=== PATIENT | female | born 1980 | race African-American/Black ===

== ENCOUNTER 2018-09-02 12:37 | Inpatient (IN) | payer MEDICAID ==
[~2018-09-02] VITALS: Ht 157.5 cm; Wt 121.9 kg
[2018-09-02] MEDS ORDERED: CEFTRIAXONE 250 MG INJ IM ONE (14:30)
[2018-09-02] MEDS ORDERED: LIDOCAINE 1% (MPF) 5 ML VIAL INJ ONE (14:30)
[2018-09-02] MEDS ORDERED: AZITHROMYCIN 500 MG TAB PO ONE (14:30)
--- NOTE | 2018-09-02 16:28 | ERD ---
ER Documentation Chief Complaint Chief Complaint needs std check HPI 38-year-old woman complains of recent weakness and dizziness and states she has been feeling faint. She states for the last few weeks she has had increasing bleeding from painful hemorrhoid especially during bowel movements. She denies weight loss, no fevers or chills, no chest pain or shortness of breath, no vomiting or diarrhea, no complaints of abdominal pain. Patient denies history of anemia or blood transfusions. Patient later stated she wanted empiric treatment for possible sexually transmitted infection because the man she was recently sleeping with had an STI. She has no genitourinary symptoms. ROS All systems reviewed and are negative except as per history of present illness. Allergies Allergies: Coded Allergies: No Known Allergy (Unverified , 09/02/18) PMhx/Soc None Medical and Surgical Hx: pt denies Medical Hx, pt denies Surgical Hx Hx Alcohol Use: No Hx Substance Use: Yes (marijuana) Hx Tobacco Use: No Smoking Status: Never smoker FmHx Family History: No diabetes Physical Exam Vitals Vital Signs Date Temp Pulse Resp B/P (MAP) Pulse Ox O2 O2 Flow FiO2 Time Delivery Rate 09/02/18 97.0 112 20 152/73 100 12:41 (99) Physical Exam GENERAL: Well-developed, well-nourished, weak, appears dehydrated, afebrile HEENT: Dry mucous membranes, pale conjunctiva, no cervical spine tenderness or step-off deformities, no goiter, no jaundice or icterus, extraocular movements intact without pain. No submandibular induration, and no pharyngeal erythema NEURO: Alert and oriented 3, cranial nerves II through XII intact bilaterally, pupils equal round reactive to light, no focal deficits or facial asymmetry, sensation intact distally Strength 5/5 in upper and lower extremities bilaterally CARDIAC: Tachycardic and regular, no murmurs rubs or gallops LUNGS: Clear bilaterally no wheezing crackles or stridor ABDOMEN: Soft nontender, no guarding, no rigidity, no rebound, no psoas sign no obturator sign. SKIN: Warm and dry to touch, no abrasions, contusions, or hematomas, no lacerations, no ecchymosis, no target lesions, and without ulcers Result Diagram: 09/02/18 1426 Results 24 hrs Laboratory Tests Test 09/02/18 14:24 09/02/18 14:26 Bedside Urine pH (LAB) 5.5 Bedside Urine Protein (LAB) 2+ Bedside Urine Glucose (UA) Negative Bedside Urine Ketones (LAB) Trace Bedside Urine Blood 3+ Bedside Urine Nitrite (LAB) Negative Bedside Urine Leukocyte Esterase (L Negative White Blood Count 13.8 10^3/ul Red Blood Count 2.90 10^6/ul Hemoglobin 6.5 g/dl Hematocrit 21.8 % Mean Corpuscular Volume 75.2 fl Mean Corpuscular Hemoglobin 22.4 pg Mean Corpuscular Hemoglobin Concent 29.8 g/dl Red Cell Distribution Width 16.6 % Platelet Count 418 10^3/UL Mean Platelet Volume 9.8 fl Immature Granulocytes % 0.700 % Neutrophils % 64.9 % Segmented Neutrophils % (Manual) 67 % Lymphocytes % 19.3 % Lymphocytes % (Manual) 12 % Reactive Lymphocytes % (Manual) 5 % Monocytes % 6.9 % Monocytes % (Manual) 4 % Eosinophils % 7.7 % Eosinophils % (Manual) 10 % Basophils % 0.5 % Basophils % (Manual) 1 % Nucleated Red Blood Cells % 0.2 /100WBC Immature Granulocytes # 0.090 10^3/ul Neutrophils # 9.0 10^3/ul Lymphocytes (Manual) 1.6 10^3/ul Lymphocytes # 2.7 10^3/ul Reactive Lymphocytes # 0.6 10^3/ul Monocytes # 1.0 10^3/ul Monocytes # (Manual) 0.5 10^3/ul Eosinophils # 1.1 10^3/ul Basophils # 0.1 10^3/ul Basophils # (Manual) 0.1 10^3/ul Nucleated Red Blood Cells # 0.0 10^3/ul Pathologist Review (Hematology) YES Polychromasia 1+ Hypochromasia 3+ Anisocytosis 2+ Microcytosis 2+ Ovalocytes 1+ POC Beta HCG, Qualitative NEGATIVE Current Medications Medications Dose Sig/Damian Start Time Status Last (Trade) Ordered Route PRN Stop Time Admin Dose Reason Admin 1,000 mg ONCE ONCE 09/02/18 DC 09/02/18 Azithromycin PO 14:30 14:27 (Zithromax) 09/02/18 14:31 Ceftriaxone 250 mg ONCE ONCE 09/02/18 DC 09/02/18 Sodium IM 14:30 14:27 (Rocephin) 09/02/18 14:31 Lidocaine 5 ml ONCE ONCE 09/02/18 DC 09/02/18 (Xylocaine INJ 14:30 14:27 1% (Mpf)) 09/02/18 14:31 Procedures/MDM IV line was established patient was placed on case monitor rhythm strip revealed a sinus tachycardia at 120 bpm with upright P and T waves. Patient was afebrile Patient was initially treated with ceftriaxone and azithromycin empirically for STI. CBC reveals severe anemia with a hemoglobin of 6.5. test was negative, electrolytes liver function tests urine analysis pending I will follow-up. I ordered transfusion 1 unit PRBC IV over 2 hours. Rectal exam deferred to admitting team This is a young otherwise healthy woman presenting with symptomatic anemia and what seems to be bleeding hemorrhoids. She will be admitted to [facility] for continued medical management and possible consultation. Departure Diagnosis: Primary Impression: Bleeding hemorrhoid Additional Impression: Symptomatic anemia Condition: JOSÉ Forte MD Sep 02, 2018 16:20
[2018-09-02] MEDS ORDERED: ONDANSETRON 4 MG INJ IV PRN (19:00)
[2018-09-02] MEDS ORDERED: NACL 0.9% 3 ML SYG IV SCH (19:00)
[2018-09-02] MEDS ORDERED: morphine 2 MG INJ IV PRN (19:00)
[2018-09-02] MEDS ORDERED: ZOLPIDEM 5 MG TAB PO PRN (19:00)
--- NOTE | 2018-09-02 19:41 | HP ---
Date/Time of Note Date/Time of Note DATE: 09/02/18 TIME: 19:37 Assessment/Plan VTE Prophylaxis SCD applied (from Nsg): Yes Pharmacological prophylaxis: NA/contraindicated Pharm contraindication: bleeding Lines/Catheters IV Catheter Type (from Nrsg): Saline Lock Assessment/Plan Hospital Course 1. Symptomatic microcytic anemia secondary to GI bleed Patient reports a history of hemorrhoids GI consultation obtained Blood transfusion Check iron and replete 2. Leukocytosis likely reactive UA is negative and patient has no upper respiratory infection symptoms Monitor Prophylaxis: SCDs Result Diagram: 09/02/18 1426 09/02/18 1701 Results 24hrs Laboratory Tests Test 09/02/18 14:24 09/02/18 14:26 09/02/18 17:01 Bedside Urine pH (LAB) 5.5 Bedside Urine Protein (LAB) 2+ H Bedside Urine Glucose (UA) Negative Bedside Urine Ketones (LAB) Trace H Bedside Urine Blood 3+ H Bedside Urine Nitrite (LAB) Negative Bedside Urine Leukocyte Esterase (L Negative White Blood Count 13.8 H Red Blood Count 2.90 L Hemoglobin 6.5 *L Hematocrit 21.8 L Mean Corpuscular Volume 75.2 L Mean Corpuscular Hemoglobin 22.4 L Mean Corpuscular Hemoglobin Concent 29.8 L Red Cell Distribution Width 16.6 H Platelet Count 418 H Mean Platelet Volume 9.8 Immature Granulocytes % 0.700 H Neutrophils % 64.9 Segmented Neutrophils % (Manual) 67 Lymphocytes % 19.3 Lymphocytes % (Manual) 12 L Reactive Lymphocytes % (Manual) 5 H Monocytes % 6.9 Monocytes % (Manual) 4 Eosinophils % 7.7 H Eosinophils % (Manual) 10 H Basophils % 0.5 Basophils % (Manual) 1 Nucleated Red Blood Cells % 0.2 H Immature Granulocytes # 0.090 H Neutrophils # 9.0 H Lymphocytes (Manual) 1.6 Lymphocytes # 2.7 Reactive Lymphocytes # 0.6 H Monocytes # 1.0 H Monocytes # (Manual) 0.5 Eosinophils # 1.1 H Basophils # 0.1 Basophils # (Manual) 0.1 H Nucleated Red Blood Cells # 0.0 Pathologist Review (Hematology) YES Polychromasia 1+ Hypochromasia 3+ Anisocytosis 2+ Microcytosis 2+ Ovalocytes 1+ POC Beta HCG, Qualitative NEGATIVE Prothrombin Time 12.8 Prothrombin Time Ratio 1.0 INR International Normalized Ratio 0.95 Activated Partial Thromboplast Time 22.4 L Sodium Level 140 Potassium Level 3.7 Chloride Level 108 Carbon Dioxide Level 21 Anion Gap 11 Blood Urea Nitrogen 7 Creatinine 0.66 Est Glomerular Filtrat Rate mL/min > 60 Glucose Level 100 Calcium Level 9.3 Total Bilirubin 0.4 Direct Bilirubin 0.00 Indirect Bilirubin 0.4 Aspartate Amino Transf (AST/SGOT) 18 Alanine Aminotransferase (ALT/SGPT) 14 Alkaline Phosphatase 85 Total Protein 7.5 Albumin 4.3 Globulin 3.20 Albumin/Globulin Ratio 1.34 Lipase 27 HPI/ROS Admit Date/Time Admit Date/Time September 02, 2018 Hx of Present Illness Patient is a 38-year-old female with a history of lower GI bleed believed to be secondary to hemorrhoids with chronic bright red blood per rectum for the past 2 years. Patient was hospitalized in the past for GI bleed, patient states that she was given an iron pill and no endoscopy was performed. Patient denies any vaginal bleeding and denies any other medical history. Patient presents to the ER for worsening dizziness and fatigue and was found to be severely anemic. Of note patient states that she is chronically fatigued over the past 2 years but felt worse over the past several days. ROS Constitutional: no complaints, improved Eyes: no complaints ENT: no complaints Respiratory: no complaints Cardiovascular: no complaints Gastrointestinal: no complaints Genitourinary: no complaints Musculoskeletal: no complaints Skin: no complaints Neurologic: no complaints Endocrine: no complaints Lymphatic: no complaints Psychological: no complaints, nl mood/affect Immunologic: no complaints PMH/Family/Social Past Medical History Chronic GI bleed Medications Current Medications Potassium Chloride/Sodium Chloride 1,000 ml @ 100 mls/hr Q10H IV ; Start 09/02/18 at 18:57 IV Flush (NS 3 ml) 3 ml PER PROTOCOL IV ; Start 09/02/18 at 19:00 Ondansetron HCl (Zofran Inj) 4 mg Q6H PRN IV NAUSEA/VOMITING; Start 09/02/18 at 19:00 Acetaminophen (Tylenol Tab) 650 mg Q6H PRN PO .PAIN 1-3 OR TEMP; Start 09/02/18 at 19:00 Acetaminophen/ Hydrocodone Bitart ([place] (5/325)) 1 tab Q6H PRN PO .MOD PAIN 4- 6; Start 09/02/18 at 19:00 Morphine Sulfate (morphine) 2 mg Q4H PRN IV .SEVERE PAIN 7-10; Start 09/02/18 at 19:00 Zolpidem Tartrate (Ambien) 5 mg QHS PRN PO .INSOMNIA; Start 09/02/18 at 19:00 Pantoprazole (Protonix Iv) 40 mg DAILY@06 IV ; Start 09/03/18 at 06:00 Ferric Sodium Gluconate Complex 125 mg/Sodium Chloride 100 ml @ 100 mls/hr DAILY@1300 IVPB ; Start 09/03/18 at 13:00; Stop 09/05/18 at 13:59 Coded Allergies: No Known Allergy (Unverified , 09/02/18) Past Surgical History Past Surgical Hx: no surgical history Family History Significant Family History: no pertinent family hx Social History Alcohol Use: rarely Smoking Status: Never smoker Drug Use: none Exam/Review of Systems Vital Signs Vitals Vital Signs Date Temp Pulse Resp B/P (MAP) Pulse Ox O2 O2 Flow FiO2 Time Delivery Rate 09/02/18 98.4 88 16 118/50 100 Room Air 19:30 (72) Exam Constitutional: alert, oriented Respiratory: clear to auscultation Cardiovascular: regular rate and rhythm Gastrointestinal: soft; No distended Musculoskeletal: nl extremities to inspection KEAGAN MARTINEZ Sep 02, 2018 19:41
[2018-09-02 20:37] VITALS: BP 145/70; PULSE 95; RESP 18
[2018-09-02] MEDS: ACETAMINOPHEN 325 MG TAB PO PRN (21:05)
[2018-09-02 21:12] VITALS: Ht 157.5 cm; Wt 121.9 kg
[2018-09-03 02:00] VITALS: BP 123/72; PULSE 75; RESP 18
[2018-09-03] MEDS: NS + KCL 20 MEQ 1,000 ML IV SCH ×5 (02:30→23:52)
[2018-09-03] MEDS: PANTOPRAZOLE 40 MG INJ IV SCH (05:51)
[2018-09-03 07:40] VITALS: BP 116/64; PULSE 78; RESP 18
--- NOTE | 2018-09-03 11:43 | CONS ---
Assessment/Plan Assessment/Plan Hospital Course (Demo Recall) Summary Assessment and Plan: Assessment: Hematochezia Lower abdominal tenderness Iron deficiency anemia Obesity Plan: Clear liquid diet today N.p.o. after 09/04/18 at 0 800 EGD/colonoscopy 09/04/18 Endoscopy - risks/benefits/alternatives/indications of procedure and sedation/anesthesia discussed with patient who states understanding and gives informed consent to proceed. Patient seen in collaboration with Dr. Johnston CC: KERRY JOHNSTON ; Consultation Date/Type/Reason Admit Date/Time September 02, 2018 Date of Consultation: Sep 03, 2018 Type of Consult GI Reason for Consultation Hematochezia Date/Time of Note DATE: 09/03/18 TIME: 11:27 Hx of Present Illness This is a 38 year old female with no significant PMH who presented to the ED with c/o generalized weakness, and dizziness. Upon work-up pt found to have severe microcytic anemia. She states she has had rectal bleeding for some time, described as maroon in color. She has never had a colonoscopy or EGD and she denies family history of colon cancer, unintentional weight loss, or change in bowel habits. Given clinical picture discussed plan for EGD and colonoscopy tomorrow. I reviewed risk/benefits of both procedure and sedation patient verbalized understanding and is agreeable to proceed with procedures tomorrow. Review of Systems: A 12 system, review was conducted and is negative except as noted in the HPI or here. Past Medical History Home Meds No Active Prescriptions or Reported Meds Medications Current Medications Potassium Chloride/Sodium Chloride 1,000 ml @ 100 mls/hr Q10H IV Last administered on 09/03/18at 02:30; Admin Dose 100 MLS/HR; Start 09/02/18 at 18:57 IV Flush (NS 3 ml) 3 ml PER PROTOCOL IV ; Start 09/02/18 at 19:00 Ondansetron HCl (Zofran Inj) 4 mg Q6H PRN IV NAUSEA/VOMITING; Start 09/02/18 at 19:00 Acetaminophen (Tylenol Tab) 650 mg Q6H PRN PO .PAIN 1-3 OR TEMP Last administered on 09/02/18at 21:05; Admin Dose 650 MG; Start 09/02/18 at 19:00 Acetaminophen/ Hydrocodone Bitart ([place] (5/325)) 1 tab Q6H PRN PO .MOD PAIN 4- 6; Start 09/02/18 at 19:00 Morphine Sulfate (morphine) 2 mg Q4H PRN IV .SEVERE PAIN 7-10; Start 09/02/18 at 19:00 Zolpidem Tartrate (Ambien) 5 mg QHS PRN PO .INSOMNIA; Start 09/02/18 at 19:00 Pantoprazole (Protonix Iv) 40 mg DAILY@06 IV Last administered on 09/03/18at 05:51; Admin Dose 40 MG; Start 09/03/18 at 06:00 Ferric Sodium Gluconate Complex 125 mg/Sodium Chloride 100 ml @ 100 mls/hr DAILY@1300 IVPB ; Start 09/03/18 at 13:00; Stop 09/05/18 at 13:59 Allergies: Coded Allergies: No Known Allergy (Unverified , 09/02/18) Past Surgical History Past Surgical Hx: no surgical history Social History Alcohol Use: rarely Smoking Status: Current some day smoker Drug Use: none Exam/Review of Systems Exam Vitals Vital Signs Date Temp Pulse Resp B/P (MAP) Pulse Ox O2 O2 Flow FiO2 Time Delivery Rate 09/03/18 98.5 78 18 116/64 99 Room Air 07:40 (81) Intake and Output 09/02/18 09/02/18 09/03/18 1515:00 23:00 07:00 IntakeIntake Total 1150 ml 650 ml BalanceBalance 1150 ml 650 ml Exam PHYSICAL EXAMINATION: GENERAL: Obese, alert & oriented x 3, in no acute distress SKIN: No lesions EYES: Pupils equal reactive to light, no discharge. EARS/NOSE AND THROAT: Ears normal, nose normal NECK: Supple, no masses CHEST: Inspection within normal limits. CARDIOVASCULAR: Heart: Regular rate and rhythm. RESPIRATORY: Lungs clear to auscultation GASTROINTESTINAL AND LIVER: Abdomen: Soft, lower abd tenderness, non-distended, no hernias, no masses, no organomegaly, no ascites, no guarding, no rebound tenderness, normoactive bowel sounds. Rectal: Deferred. EXTREMITIES: No cyanosis, clubbing or edema. Results Result Diagram: 09/03/18 0550 09/03/18 0550 Results 24hrs Laboratory Tests Test 09/02/18 14:24 09/02/18 14:26 09/02/18 17:01 09/03/18 05:50 Bedside Urine pH 5.5 (LAB) Bedside Urine 2+ H Protein (LAB) Bedside Urine Negative Glucose (UA) Bedside Urine Trace H Ketones (LAB) Bedside Urine Blood 3+ H Bedside Urine Negative Nitrite (LAB) Bedside Urine Negative Leukocyte Esterase (L White Blood Count 13.8 H 11.2 H Red Blood Count 2.90 L 3.27 L Hemoglobin 6.5 *L 8.1 #L Hematocrit 21.8 L 25.7 L Mean Corpuscular 75.2 L 78.6 L Volume Mean Corpuscular 22.4 L 24.8 L Hemoglobin Mean Corpuscular 29.8 L 31.5 L Hemoglobin Concent Red Cell 16.6 H 18.3 H Distribution Width Platelet Count 418 H 357 Mean Platelet Volume 9.8 10.5 H Immature 0.700 H 0.500 H Granulocytes % Neutrophils % 64.9 63.0 Segmented 67 Neutrophils % (Manual) Lymphocytes % 19.3 19.3 Lymphocytes % 12 L (Manual) Reactive Lymphocytes 5 H % (Manual) Monocytes % 6.9 7.2 Monocytes % (Manual) 4 Eosinophils % 7.7 H 9.5 H Eosinophils % 10 H (Manual) Basophils % 0.5 0.5 Basophils % (Manual) 1 Nucleated Red Blood 0.2 H 0.0 Cells % Immature 0.090 H 0.060 H Granulocytes # Neutrophils # 9.0 H 7.1 Lymphocytes (Manual) 1.6 Lymphocytes # 2.7 2.2 Reactive Lymphocytes 0.6 H # Monocytes # 1.0 H 0.8 Monocytes # (Manual) 0.5 Eosinophils # 1.1 H 1.1 H Basophils # 0.1 0.1 Basophils # (Manual) 0.1 H Nucleated Red Blood 0.0 0.0 Cells # Pathologist YES Review (Hematology) Polychromasia 1+ Hypochromasia 3+ Anisocytosis 2+ Microcytosis 2+ Ovalocytes 1+ POC Beta HCG, NEGATIVE Qualitative Prothrombin Time 12.8 Prothrombin Time 1.0 Ratio INR International 0.95 Normalized Ratio Activated 22.4 L Partial Thromboplast Time Sodium Level 140 140 Potassium Level 3.7 3.9 Chloride Level 108 106 Carbon Dioxide Level 21 22 Anion Gap 11 12 Blood Urea Nitrogen 7 5 L Creatinine 0.66 0.64 Est Glomerular > 60 > 60 Filtrat Rate mL/min Glucose Level 100 97 Calcium Level 9.3 8.7 Total Bilirubin 0.4 Direct Bilirubin 0.00 Indirect Bilirubin 0.4 Aspartate Amino 18 Transf (AST/SGOT) Alanine 14 Aminotransferase (AL T/SGPT) Alkaline Phosphatase 85 Total Protein 7.5 Albumin 4.3 Globulin 3.20 Albumin/Globulin 1.34 Ratio Lipase 27 Hemoglobin A1c 5.5 Phosphorus Level 3.9 Magnesium Level 2.1 Iron Level 32 L Total Iron Binding 444 H Capacity Percent Iron 7 L Saturation Triglycerides Level 120 Cholesterol Level 150 LDL Cholesterol, 86 Calculated HDL Cholesterol 40 Cholesterol/HDL 3.7 Ratio Medications Medication Current Medications Potassium Chloride/Sodium Chloride 1,000 ml @ 100 mls/hr Q10H IV Last adm inistered on 09/03/18at 02:30; Admin Dose 100 MLS/HR; Start 09/02/18 at 18:57 IV Flush (NS 3 ml) 3 ml PER PROTOCOL IV ; Start 09/02/18 at 19:00 Ondansetron HCl (Zofran Inj) 4 mg Q6H PRN IV NAUSEA/VOMITING; Start 09/02/18 at 19:00 Acetaminophen (Tylenol Tab) 650 mg Q6H PRN PO .PAIN 1-3 OR TEMP Last administered on 09/02/18at 21:05; Admin Dose 650 MG; Start 09/02/18 at 19:00 Acetaminophen/ Hydrocodone Bitart ([place] (5/325)) 1 tab Q6H PRN PO .MOD PAIN 4- 6; Start 09/02/18 at 19:00 Morphine Sulfate (morphine) 2 mg Q4H PRN IV .SEVERE PAIN 7-10; Start 09/02/18 at 19:00 Zolpidem Tartrate (Ambien) 5 mg QHS PRN PO .INSOMNIA; Start 09/02/18 at 19:00 Pantoprazole (Protonix Iv) 40 mg DAILY@06 IV Last administered on 09/03/18at 05:51; Admin Dose 40 MG; Start 09/03/18 at 06:00 Ferric Sodium Gluconate Complex 125 mg/Sodium Chloride 100 ml @ 100 mls/hr DAILY@1300 IVPB ; Start 09/03/18 at 13:00; Stop 09/05/18 at 13:59 ELDA HOOD Sep 03, 2018 11:37
[2018-09-03] MEDS ORDERED: BISACODYL (EC) 5 MG TAB PO ONE (12:00)
[2018-09-03 14:05] VITALS: BP 148/83; PULSE 78; RESP 18
[2018-09-03] MEDS: SOD FERRIC GLUC COMPLX 125 MG in SOD CHLORIDE 0.9% 100 ML IVPB SCH (14:30)
--- NOTE | 2018-09-03 14:34 | PN ---
Date/Time of Note Date/Time of Note DATE: 09/03/18 TIME: 14:33 Assessment/Plan VTE Prophylaxis Risk score (from [facility])>0 risk: 1 SCD applied (from [facility]): Yes Pharmacological prophylaxis: NA/contraindicated Pharm contraindication: bleeding Lines/Catheters IV Catheter Type (from [facility]): Peripheral IV Urinary Cath still in place: No Assessment/Plan Hospital Course 1. Symptomatic microcytic anemia secondary to GI bleed Patient reports a history of hemorrhoids GI consultation obtained, plan for EGD and colonoscopy tomorrow Status post blood transfusion Iron panel consistent with deficiency, continue Ferrlecit 2. Leukocytosis likely reactive-trending down UA is negative and patient has no upper respiratory infection symptoms Monitor Prophylaxis: SCDs Result Diagram: 09/03/18 0550 09/03/18 0550 Results 24hrs Laboratory Tests Test 09/02/18 17:01 09/03/18 05:50 Prothrombin Time 12.8 Prothrombin Time Ratio 1.0 INR International Normalized Ratio 0.95 Activated Partial Thromboplast Time 22.4 L Sodium Level 140 140 Potassium Level 3.7 3.9 Chloride Level 108 106 Carbon Dioxide Level 21 22 Anion Gap 11 12 Blood Urea Nitrogen 7 5 L Creatinine 0.66 0.64 Est Glomerular Filtrat Rate mL/min > 60 > 60 Glucose Level 100 97 Calcium Level 9.3 8.7 Total Bilirubin 0.4 Direct Bilirubin 0.00 Indirect Bilirubin 0.4 Aspartate Amino Transf (AST/SGOT) 18 Alanine Aminotransferase (ALT/SGPT) 14 Alkaline Phosphatase 85 Total Protein 7.5 Albumin 4.3 Globulin 3.20 Albumin/Globulin Ratio 1.34 Lipase 27 White Blood Count 11.2 H Red Blood Count 3.27 L Hemoglobin 8.1 #L Hematocrit 25.7 L Mean Corpuscular Volume 78.6 L Mean Corpuscular Hemoglobin 24.8 L Mean Corpuscular Hemoglobin Concent 31.5 L Red Cell Distribution Width 18.3 H Platelet Count 357 Mean Platelet Volume 10.5 H Immature Granulocytes % 0.500 H Neutrophils % 63.0 Lymphocytes % 19.3 Monocytes % 7.2 Eosinophils % 9.5 H Basophils % 0.5 Nucleated Red Blood Cells % 0.0 Immature Granulocytes # 0.060 H Neutrophils # 7.1 Lymphocytes # 2.2 Monocytes # 0.8 Eosinophils # 1.1 H Basophils # 0.1 Nucleated Red Blood Cells # 0.0 Hemoglobin A1c 5.5 Phosphorus Level 3.9 Magnesium Level 2.1 Iron Level 32 L Total Iron Binding Capacity 444 H Percent Iron Saturation 7 L Triglycerides Level 120 Cholesterol Level 150 LDL Cholesterol, Calculated 86 HDL Cholesterol 40 Cholesterol/HDL Ratio 3.7 Subjective 24 Hr Interval Summary Constitutional: no complaints Exam/Review of Systems Exam Vitals Vital Signs Date Temp Pulse Resp B/P (MAP) Pulse Ox O2 O2 Flow FiO2 Time Delivery Rate 09/03/18 98.5 78 18 116/64 99 Room Air 07:40 (81) Intake and Output 09/02/18 09/02/18 09/03/18 1515:00 23:00 07:00 IntakeIntake Total 1150 ml 650 ml BalanceBalance 1150 ml 650 ml Constitutional: alert, oriented Respiratory: clear to auscultation Cardiovascular: regular rate and rhythm Gastrointestinal: soft Musculoskeletal: nl extremities to inspection Results Results 24hrs Laboratory Tests Test 09/02/18 17:01 09/03/18 05:50 Prothrombin Time 12.8 Prothrombin Time Ratio 1.0 INR International Normalized Ratio 0.95 Activated Partial Thromboplast Time 22.4 L Sodium Level 140 140 Potassium Level 3.7 3.9 Chloride Level 108 106 Carbon Dioxide Level 21 22 Anion Gap 11 12 Blood Urea Nitrogen 7 5 L Creatinine 0.66 0.64 Est Glomerular Filtrat Rate mL/min > 60 > 60 Glucose Level 100 97 Calcium Level 9.3 8.7 Total Bilirubin 0.4 Direct Bilirubin 0.00 Indirect Bilirubin 0.4 Aspartate Amino Transf (AST/SGOT) 18 Alanine Aminotransferase (ALT/SGPT) 14 Alkaline Phosphatase 85 Total Protein 7.5 Albumin 4.3 Globulin 3.20 Albumin/Globulin Ratio 1.34 Lipase 27 White Blood Count 11.2 H Red Blood Count 3.27 L Hemoglobin 8.1 #L Hematocrit 25.7 L Mean Corpuscular Volume 78.6 L Mean Corpuscular Hemoglobin 24.8 L Mean Corpuscular Hemoglobin Concent 31.5 L Red Cell Distribution Width 18.3 H Platelet Count 357 Mean Platelet Volume 10.5 H Immature Granulocytes % 0.500 H Neutrophils % 63.0 Lymphocytes % 19.3 Monocytes % 7.2 Eosinophils % 9.5 H Basophils % 0.5 Nucleated Red Blood Cells % 0.0 Immature Granulocytes # 0.060 H Neutrophils # 7.1 Lymphocytes # 2.2 Monocytes # 0.8 Eosinophils # 1.1 H Basophils # 0.1 Nucleated Red Blood Cells # 0.0 Hemoglobin A1c 5.5 Phosphorus Level 3.9 Magnesium Level 2.1 Iron Level 32 L Total Iron Binding Capacity 444 H Percent Iron Saturation 7 L Triglycerides Level 120 Cholesterol Level 150 LDL Cholesterol, Calculated 86 HDL Cholesterol 40 Cholesterol/HDL Ratio 3.7 Medications Medication Current Medications Potassium Chloride/Sodium Chloride 1,000 ml @ 100 mls/hr Q10H IV Last adminis tered on 09/03/18at 02:30; Admin Dose 100 MLS/HR; Start 09/02/18 at 18:57 IV Flush (NS 3 ml) 3 ml PER PROTOCOL IV ; Start 09/02/18 at 19:00 Ondansetron HCl (Zofran Inj) 4 mg Q6H PRN IV NAUSEA/VOMITING; Start 09/02/18 at 19:00 Acetaminophen (Tylenol Tab) 650 mg Q6H PRN PO .PAIN 1-3 OR TEMP Last admi nistered on 09/02/18at 21:05; Admin Dose 650 MG; Start 09/02/18 at 19:00 Acetaminophen/ Hydrocodone Bitart ([place] (5/325)) 1 tab Q6H PRN PO .MOD PAIN 4- 6; Start 09/02/18 at 19:00 Morphine Sulfate (morphine) 2 mg Q4H PRN IV .SEVERE PAIN 7-10; Start 09/02/18 at 19:00 Zolpidem Tartrate (Ambien) 5 mg QHS PRN PO .INSOMNIA; Start 09/02/18 at 19:00 Pantoprazole (Protonix Iv) 40 mg DAILY@06 IV Last administered on 09/03/18at 05:51; Admin Dose 40 MG; Start 09/03/18 at 06:00 Ferric Sodium Gluconate Complex 125 mg/Sodium Chloride 100 ml @ 100 mls/hr DAILY@1300 IVPB Last administered on 09/03/18at 14:30; Admin Dose 100 MLS/HR; Start 09/03/18 at 13:00; Stop 09/05/18 at 13:59 Magnesium Citrate (Citroma) 300 ml ONCE ONCE PO ; Start 09/03/18 at 17:30; Stop 09/03/18 at 17:31 Polyethylene Glycol (Miralax) 119 gm ONCE ONCE PO ; Start 3/28/19 at 18:30; Stop 09/03/18 at 18:31 Polyethylene Glycol (Miralax) 119 gm 2ND DOSE (GI PREP) ONCE PO ; Start 09/04/18 at 06:00; Stop 09/04/18 at 06:01 Bisacodyl (Dulcolax) 10 mg 2ND DOSE (GI PREP) ONCE PO ; Start 09/04/18 at 08:00; Stop 09/04/18 at 08:01 KEAGAN MARTINEZ Sep 03, 2018 14:34
--- NOTE | 2018-09-03 17:10 | PREAC ---
Date/Time of Note Date/Time of Note DATE: 09/03/18 TIME: 17:09 Anesthesia Eval and Record Evaluation Time Pre-Procedure Interview DATE: 09/03/18 TIME: 17:09 Age 38 Sex female NPO: 8 hrs Preoperative diagnosis rectal bleeding Planned procedure EGD / Colonoscopy Past Medical History Past Medical History: Includes GI: Morbid obesity Heme: Anemia Surgery & Anesthesia Issues No known issue Meds Anticoagulation: No Beta Gabriela within 24 hr: No Reason Beta Gabriela not given: Pt. not on B-Gabriela No Active Prescriptions or Reported Meds Current Medications Potassium Chloride/Sodium Chloride 1,000 ml @ 100 mls/hr Q10H IV Last administered on 09/03/18at 17:02; Admin Dose 100 MLS/HR; Start 09/02/18 at 18:57 IV Flush (NS 3 ml) 3 ml PER PROTOCOL IV ; Start 09/02/18 at 19:00 Ondansetron HCl (Zofran Inj) 4 mg Q6H PRN IV NAUSEA/VOMITING; Start 09/02/18 at 19:00 Acetaminophen (Tylenol Tab) 650 mg Q6H PRN PO .PAIN 1-3 OR TEMP Last administered on 09/02/18at 21:05; Admin Dose 650 MG; Start 09/02/18 at 19:00 Acetaminophen/ Hydrocodone Bitart ([place] (5/325)) 1 tab Q6H PRN PO .MOD PAIN 4- 6; Start 09/02/18 at 19:00 Morphine Sulfate (morphine) 2 mg Q4H PRN IV .SEVERE PAIN 7-10; Start 09/02/18 at 19:00 Zolpidem Tartrate (Ambien) 5 mg QHS PRN PO .INSOMNIA; Start 09/02/18 at 19:00 Pantoprazole (Protonix Iv) 40 mg DAILY@06 IV Last administered on 09/03/18at 05:51; Admin Dose 40 MG; Start 09/03/18 at 06:00 Ferric Sodium Gluconate Complex 125 mg/Sodium Chloride 100 ml @ 100 mls/hr DAILY@1300 IVPB Last administered on 09/03/18at 14:30; Admin Dose 100 MLS/HR; Start 09/03/18 at 13:00; Stop 09/05/18 at 13:59 Magnesium Citrate (Citroma) 300 ml ONCE ONCE PO Last administered on 09/03/18at 17:02; Admin Dose 300 ML; Start 09/03/18 at 17:30; Stop 09/03/18 at 17:31 Polyethylene Glycol (Miralax) 119 gm ONCE ONCE PO ; Start 09/03/18 at 18:30; Stop 09/03/18 at 18:31 Polyethylene Glycol (Miralax) 119 gm 2ND DOSE (GI PREP) ONCE PO ; Start 09/04/18 at 06:00; Stop 09/04/18 at 06:01 Bisacodyl (Dulcolax) 10 mg 2ND DOSE (GI PREP) ONCE PO ; Start 09/04/18 at 08:00; Stop 09/04/18 at 08:01 Meds reviewed: Yes Allergies Coded Allergies: No Known Allergy (Unverified , 09/02/18) Allergies Reviewed: Yes Labs/Studies Labs Reviewed: Reviewed by anesthesiologist Result Diagram: 09/03/18 0550 09/03/18 0550 Laboratory Tests 09/03/18 05:50 test: Negative Pre-procedure Exam Last vitals Vital Signs Date Temp Pulse Resp B/P (MAP) Pulse Ox O2 O2 Flow FiO2 Time Delivery Rate 09/03/18 98.3 78 18 148/83 99 Room Air 14:05 (104) Airway: Adequate mouth opening Mallampati: Mallampati II Teeth: Normal Lung: Normal Heart: Normal ASA Physical Status ASA physical status: 3 Emergency: None Planned Anesthetic General/MAC: MAC Pre-operative Attestations Prior to commencing anesthesia and surgery, the patient was re-evaluated, there was verification of: *The patient's identity *The results of appropriate recent lab work and preoperative vital signs *The above evaluation not changing prior to induction *Anesthetic plan, risk benefits, alternative and complications discussed with patient/family; questions answered; patient/family understands, accepts and wishes to proceed. HOSSEIN MCCORMICK Sep 03, 2018 17:10
[2018-09-03] MEDS ORDERED: MAGNESIUM CITRATE 300 ML BTL PO ONE (17:30)
[2018-09-03] MEDS ORDERED: POLYETHYLENE GLYCOL 3350 119 GM POWDER PO ONE (18:30)
[2018-09-03] MEDS: ACETAMINOPHEN 325 MG TAB PO PRN (19:06)
[2018-09-03 20:12] VITALS: BP 141/75; PULSE 89; RESP 18
[2018-09-04] VITALS (8 sets, daily range): BP systolic 98–146; BP diastolic 54–88; PULSE 72–88; RESP 17–28
[2018-09-04] MEDS: NS + KCL 20 MEQ 1,000 ML IV SCH ×3 (00:57→21:28)
[2018-09-04] MEDS ORDERED: POLYETHYLENE GLYCOL 3350 119 GM POWDER PO ONE (06:00)
[2018-09-04] MEDS: PANTOPRAZOLE 40 MG INJ IV SCH (06:18)
[2018-09-04] MEDS ORDERED: BISACODYL (EC) 5 MG TAB PO ONE (08:00)
--- NOTE | 2018-09-04 11:47 | PN ---
Date/Time of Note Date/Time of Note DATE: 09/04/18 TIME: 11:46 Assessment/Plan VTE Prophylaxis [place] [facility] [place]: 1 [place]CD [place] [facility] [place] Yes Pharmacological prophylaxis: NA/contraindicated Pharm contraindication: bleeding Lines/Catheters IV C[facility]ter Type [facility]from [facility] Peripheral IV Urinary Cath still in place: No Assessment/Plan Hospital Course 1. Symptomatic microcytic anemia secondary to GI bleed Patient reports a history of hemorrhoids GI consultation obtained, plan for EGD and colonoscopy today Status post blood transfusion Iron panel consistent with deficiency, continue Ferrlecit 2. Leukocytosis likely reactive-trending down UA is negative and patient has no upper respiratory infection symptoms Monitor STD panel is negative Prophylaxis: SCDs Result Diagram: 09/04/18 0445 09/03/18 0550 Results 24hrs Laboratory Tests Test 09/04/18 04:45 09/04/18 06:13 White Blood Count 12.2 H Red Blood Count 3.23 L Hemoglobin 8.0 L Hematocrit 25.3 L Mean Corpuscular Volume 78.3 L Mean Corpuscular Hemoglobin 24.8 L Mean Corpuscular Hemoglobin Concent 31.6 L Red Cell Distribution Width 18.5 H Platelet Count 353 Mean Platelet Volume 10.7 H Immature Granulocytes % 0.300 Neutrophils % 59.1 Lymphocytes % 21.2 Monocytes % 8.5 Eosinophils % 10.4 H Basophils % 0.5 Nucleated Red Blood Cells % 0.0 Immature Granulocytes # 0.040 H Neutrophils # 7.2 Lymphocytes # 2.6 Monocytes # 1.0 H Eosinophils # 1.3 H Basophils # 0.1 Nucleated Red Blood Cells # 0.0 Lab Scanned Report BLOOD TRANSFUSION Subjective 24 Hr Interval Summary Constitutional: no complaints Exam/Review of Systems Exam Vitals Vital Signs Date Temp Pulse Resp B/P (MAP) Pulse Ox O2 O2 Flow FiO2 Time Delivery Rate 09/04/18 98.4 83 18 127/73 96 07:55 (91) 09/03/18 Room Air 14:05 Intake and Output 09/03/18 09/03/18 09/04/18 1515:00 23:00 07:00 IntakeIntake Total 720 ml 1400 ml 750 ml BalanceBalance 720 ml 1400 ml 750 ml Constitutional: alert, oriented Respiratory: clear to auscultation Cardiovascular: regular rate and rhythm Gastrointestinal: soft; No distended Musculoskeletal: nl extremities to inspection Results Results 24hrs Laboratory Tests Test 09/04/18 04:45 09/04/18 06:13 White Blood Count 12.2 H Red Blood Count 3.23 L Hemoglobin 8.0 L Hematocrit 25.3 L Mean Corpuscular Volume 78.3 L Mean Corpuscular Hemoglobin 24.8 L Mean Corpuscular Hemoglobin Concent 31.6 L Red Cell Distribution Width 18.5 H Platelet Count 353 Mean Platelet Volume 10.7 H Immature Granulocytes % 0.300 Neutrophils % 59.1 Lymphocytes % 21.2 Monocytes % 8.5 Eosinophils % 10.4 H Basophils % 0.5 Nucleated Red Blood Cells % 0.0 Immature Granulocytes # 0.040 H Neutrophils # 7.2 Lymphocytes # 2.6 Monocytes # 1.0 H Eosinophils # 1.3 H Basophils # 0.1 Nucleated Red Blood Cells # 0.0 Lab Scanned Report BLOOD TRANSFUSION Medications Medication Current Medications Potassium Chloride/Sodium Chloride 1,000 ml @ 100 mls/hr Q10H IV Last administered on 09/04/18at 08:16; Admin Dose 100 MLS/HR; Start 09/02/18 at 18:57 IV Flush (NS 3 ml) 3 ml PER PROTOCOL IV ; Start 09/02/18 at 19:00 Ondansetron HCl (Zofran Inj) 4 mg Q6H PRN IV NAUSEA/VOMITING; Start 09/02/18 at 19:00 Acetaminophen (Tylenol Tab) 650 mg Q6H PRN PO .PAIN 1-3 OR TEMP Last administe red on 09/03/18at 19:06; Admin Dose 650 MG; Start 09/02/18 at 19:00 Acetaminophen/ Hydrocodone Bitart ([place] (5/325)) 1 tab Q6H PRN PO .MOD PAIN 4- 6; Start 09/02/18 at 19:00 Morphine Sulfate (morphine) 2 mg Q4H PRN IV .SEVERE PAIN 7-10; Start 09/02/18 at 19:00 Zolpidem Tartrate (Ambien) 5 mg QHS PRN PO .INSOMNIA; Start 09/02/18 at 19:00 Pantoprazole (Protonix Iv) 40 mg DAILY@06 IV Last administered on 09/04/18at 06:18; Admin Dose 40 MG; Start 09/03/18 at 06:00 Ferric Sodium Gluconate Complex 125 mg/Sodium Chloride 100 ml @ 100 mls/hr DAILY@1300 IVPB Last administered on 09/03/18at 14:30; Admin Dose 100 MLS/HR; Start 09/03/18 at 13:00; Stop 09/05/18 at 13:59 KEAGAN MARTINEZ Sep 04, 2018 11:47
[2018-09-04] MEDS: SOD FERRIC GLUC COMPLX 125 MG in SOD CHLORIDE 0.9% 100 ML IVPB SCH (13:20)
--- NOTE | 2018-09-04 13:50 | PREAC ---
Date/Time of Note Date/Time of Note DATE: 09/04/18 TIME: 13:49 Anesthesia Eval and Record Evaluation Time Pre-Procedure Interview DATE: 09/04/18 TIME: 13:49 Age 38 Sex female NPO: 8 hrs Preoperative diagnosis anemia, gi bleed Planned procedure egd and colon Past Medical History Past Medical History: Includes GI: Obesity Heme: Anemia Surgery & Anesthesia Issues No known issue Meds Anticoagulation: No Beta Gabriela within 24 hr: No Reason Beta Gabriela not given: Pt. not on B-Gabriela No Active Prescriptions or Reported Meds Current Medications Potassium Chloride/Sodium Chloride 1,000 ml @ 100 mls/hr Q10H IV Last administered on 09/04/18at 08:16; Admin Dose 100 MLS/HR; Start 09/02/18 at 18:57 IV Flush (NS 3 ml) 3 ml PER PROTOCOL IV ; Start 09/02/18 at 19:00 Ondansetron HCl (Zofran Inj) 4 mg Q6H PRN IV NAUSEA/VOMITING; Start 09/02/18 at 19:00 Acetaminophen (Tylenol Tab) 650 mg Q6H PRN PO .PAIN 1-3 OR TEMP Last administered on 09/03/18at 19:06; Admin Dose 650 MG; Start 09/02/18 at 19:00 Acetaminophen/ Hydrocodone Bitart ([place] (5/325)) 1 tab Q6H PRN PO .MOD PAIN 4- 6; Start 09/02/18 at 19:00 Morphine Sulfate (morphine) 2 mg Q4H PRN IV .SEVERE PAIN 7-10; Start 09/02/18 at 19:00 Zolpidem Tartrate (Ambien) 5 mg QHS PRN PO .INSOMNIA; Start 09/02/18 at 19:00 Pantoprazole (Protonix Iv) 40 mg DAILY@06 IV Last administered on 09/04/18at 06:18; Admin Dose 40 MG; Start 09/03/18 at 06:00 Ferric Sodium Gluconate Complex 125 mg/Sodium Chloride 100 ml @ 100 mls/hr DAILY@1300 IVPB Last administered on 09/04/18at 13:20; Admin Dose 100 MLS/HR; Start 09/03/18 at 13:00; Stop 09/05/18 at 13:59 Meds reviewed: Yes Allergies Coded Allergies: No Known Allergy (Unverified , 09/02/18) Allergies Reviewed: Yes Labs/Studies Labs Reviewed: Reviewed by anesthesiologist Result Diagram: 09/04/18 0445 09/03/18 0550 Laboratory Tests 09/04/18 04:45 test: Negative Pre-procedure Exam Last vitals Vital Signs Date Temp Pulse Resp B/P (MAP) Pulse Ox O2 O2 Flow FiO2 Time Delivery Rate 09/04/18 98.4 83 18 127/73 96 07:55 (91) 09/03/18 Room Air 14:05 Airway: Adequate mouth opening, Adequate thyromental dist Mallampati: Mallampati II Teeth: Normal Lung: Normal Heart: Normal ASA Physical Status ASA physical status: 3 Emergency: None Planned Anesthetic General/MAC: MAC Planned Pain Management Parenteral pain med Pre-operative Attestations Prior to commencing anesthesia and surgery, the patient was re-evaluated, there was verification of: *The patient's identity *The results of appropriate recent lab work and preoperative vital signs *The above evaluation not changing prior to induction *Anesthetic plan, risk benefits, alternative and complications discussed with patient/family; questions answered; patient/family understands, accepts and w ishes to proceed. PRATIK SNOW Sep 04, 2018 13:50
[2018-09-04] MEDS ORDERED: PROPOFOL 60 ML ONE (13:55)
[2018-09-04] MEDS ORDERED: LIDOCAINE 2% (SDV) 5 ML INJ ONE (13:55)
[2018-09-04] MEDS ORDERED: MIDAZOLAM 1 MG/ML 2 ML INJ IV PRN (15:00)
[2018-09-04] MEDS ORDERED: MEPERIDINE 25 MG INJ IV PRN (15:00)
[2018-09-04] MEDS ORDERED: hydrALAzine 20 MG INJ IV PRN (15:00)
[2018-09-04] MEDS ORDERED: FENTAnyl 50 MCG/ML VIAL IV PRN ×2 (15:00)
[2018-09-04] MEDS ORDERED: DIPHENHYDRAMINE 50 MG INJ IV PRN (15:00)
[2018-09-04] MEDS ORDERED: EPHEDrine SULFATE 50 MG/5 ML SYG IV PRN (15:00)
[2018-09-04] MEDS ORDERED: LABETALOL HCL 20MG INJ IV PRN (15:00)
[2018-09-04] MEDS ORDERED: ONDANSETRON 4 MG INJ IV PRN (15:00)
[2018-09-04] MEDS ORDERED: METOCLOPRAMIDE 10 MG INJ IV PRN (15:00)
--- NOTE | 2018-09-04 15:03 | PAC ---
Date/Time of Note Date/Time of Note DATE: 09/04/18 TIME: 15:02 Post-Anesthesia Notes Post-Anesthesia Note Last documented vital signs Vital Signs Date Temp Pulse Resp B/P (MAP) Pulse Ox O2 O2 Flow FiO2 Time Delivery Rate 09/04/18 98.4 83 18 127/73 96 1502 (91) 09/03/18 Room Air 14:05 Activity: WNL Respiratory function: WNL Cardiovascular function: WNL Mental status: Baseline Pain reasonably controlled: Yes Hydration appropriate: Yes Nausea/Vomiting absent: Yes PARTIK SNOW Sep 04, 2018 15:03
--- NOTE | 2018-09-04 15:35 | HPN ---
Date/Time of Note Date/Time of Note DATE: 09/04/18 TIME: 15:34 Interval H&P Admission Note Pt. seen H&P reviewed: No system changes KERRY JOHNSTON Sep 04, 2018 15:35
[2018-09-04] MEDS: HYDROCODONE/APAP (5/325) TAB PO PRN (19:03)
[2018-09-04] MEDS: ACETAMINOPHEN 325 MG TAB PO PRN (21:28)
[2018-09-05 02:00] VITALS: BP 140/64; PULSE 82; RESP 18
[2018-09-05] MEDS: PANTOPRAZOLE 40 MG INJ IV SCH (05:53)
[2018-09-05] MEDS: NS + KCL 20 MEQ 1,000 ML IV SCH (06:38)
[2018-09-05 07:36] VITALS: BP 124/72; PULSE 84; RESP 20
[2018-09-05] MEDS: HYDROCODONE/APAP (5/325) TAB PO PRN (09:23)
[2018-09-05] MEDS ORDERED: FER325 PO (09:29)
[2018-09-05] MEDS ORDERED: PSYL0.5213 PO (09:31)
--- NOTE | 2018-09-05 09:32 | PDOCDIS ---
Discharge Instructions CONDITION [id number] Patient Condition: [id number] Good HOME CARE INSTRUCTIONS: [id number] Diet Instructions: [id number] Reduced Calorie ACTIVITY: [id number] Activity Restrictions: [id number] No Restrictions FOLLOW UP/APPOINTMENTS Follow-up Plan FOLLOW UP WITH YOUR PCP IN 1-2 WEEKS KEAGAN MARTINEZ Sep 05, 2018 09:32
--- NOTE | 2018-09-05 11:23 | DS ---
Date/Time of Note Date/Time of Note DATE: 09/05/18 TIME: 11:21 Discharge Summary Admission/Discharge Info Admit Date/Time Sep 02, 2018 at 16:29 Discharge Date/Time September 05, 2018 Discharge Diagnosis 1. Symptomatic microcytic anemia secondary to GI bleed Patient reports a history of hemorrhoids GI consultation obtained, colonoscopy does show hemorrhoids which is a source of bleeding Status post blood transfusion Iron panel consistent with deficiency, status post Ferrlecit DC with iron and Metamucil 2. Leukocytosis likely reactive UA is negative and patient has no upper respiratory infection symptoms STD panel is negative Patient Condition: Good Hospital Course Patient is a 38-year-old female with a history of lower GI bleed believed to be secondary to hemorrhoids with chronic bright red blood per rectum for the past 2 years. Patient presented with symptomatic anemia with persistent reports of GI bleed, patient was seen by GI and colonoscopy did show hemorrhoids which was a source of bleeding. Patient did receive blood and iron patient was stable for DC. On day of discharge patient's vitals, labs and physical exam are stable. Home Meds Active Scripts Psyllium Husk (Metamucil) 0.52 Gm Capsule, 0.52 GM PO DAILY, #60 CAP Prov:KEAGAN MARTINEZ 09/05/18 Ferrous Sulfate* (Ferrous Sulfate*) 325 Mg Tabec, 325 MG PO BID, #60 TAB Prov:KEAGAN MARTINEZ 09/05/18 Follow-up Plan FOLLOW UP WITH YOUR PCP IN 1-2 WEEKS Primary Care Provider Care Physician No Primary Time spent on discharge: > 30 minutes KEAGAN MARTINEZ Sep 05, 2018 11:23
== END 2018-09-05 11:34 | disposition home or self-care (01) | DRG 394 ==
LOC: FTE 12:37 → 2NE 16:29
PROVIDERS: ADMIT Internal Medicine; ATTEND Internal Medicine
PROC: 0DB68ZX Excision of Stomach, Via Natural or Artificial Opening Endoscopic, Diagnostic (ICD-10-PCS; 2018-09-04)
PROC: 0DBP8ZZ Excision of Rectum, Via Natural or Artificial Opening Endoscopic (ICD-10-PCS; principal; 2018-09-04 14:00)
PROC: 0DBN8ZZ Excision of Sigmoid Colon, Via Natural or Artificial Opening Endoscopic (ICD-10-PCS; 2018-09-04 14:00)
DX: K64.8 Other hemorrhoids (principal); Z68.42 Body mass index [BMI] 45.0-49.9, adult; D62 Acute posthemorrhagic anemia; K62.1 Rectal polyp; K29.70 Gastritis, unspecified, without bleeding; D50.9 Iron deficiency anemia, unspecified; E66.01 Morbid (severe) obesity due to excess calories; Z71.3 Dietary counseling and surveillance
CPT/HCPCS: 36430; 80048; 80053; 80061; 81003; 81025; 83036; 83540; 83690; 83735; 84100; 85025; 85610; 85730; 86850; 86900; 86901; 86920; 87591; 88305; 88312; 96372; C9113; J0696; J2916; J3480; P9016